=== PATIENT | male | born 1955 | race Caucasian/White ===

== ENCOUNTER 2025-01-25 16:15 | Inpatient (IN) | payer MEDICAID ==
[~2025-01-25] VITALS: Ht 160 cm; Wt 59.4 kg
[~2025-01-25 16:15] MED LIST: AMLO5TAB88 MT; CHLO25CA10 MT; FOLI-43 MT; MULT-230 MT; THIA100T72 MT
[2025-01-25 16:17] VITALS: O2SAT 97
[2025-01-25] MEDS: MORPHINE SULFATE 4 MG/ML INJ (FOR IV/IM USE) IV STA (17:54)
[2025-01-25] MEDS: KETOROLAC 30MG/ML VIAL IV STA (17:54)
[2025-01-25 18:24] LABS: BASOPHILS % 0.8 % (0.0-2.0); EOSINOPHILS % 0.6 % (0.0-5.0); HEMATOCRIT. 39.5 % (42.0-52.0); HEMOGLOBIN. 13.1 g/dL (14.0-18.0); LYMPHOCYTES % 7.1 % (20.0-50.0); MEAN CORPUSCULAR HEMOGLOBIN 32.4 pg (28.0-32.0); MEAN CORPUSCULAR HGB CONC 33.2 g/dL (31.0-37.0); MEAN CORPUSCULAR VOLUME 97.7 fL (80.0-94.0); MEAN PLATELET VOLUME 7.1 fl (7.4-10.4); MONOCYTES % 8.9 % (2.0-8.0); NEUTROPHILS % 82.6 % (40.0-76.0); PLATELET 530 x1000/uL (130-400); RED BLOOD CELL COUNT 4.05 mill/uL (4.7-6.1); RED CELL DISTRIBUTION WIDTH 14.6 % (11.6-14.6); WHITE BLOOD COUNT 10.9 x1000/uL (4.5-11.0)
[2025-01-25 18:32] LABS: CHLORIDE 97 mEq/L (98-107); SODIUM 135 mEq/L (136-145)
[2025-01-25 18:33] LABS: CALCIUM 9.1 mg/dL (8.7-10.4); CARBON DIOXIDE 27 mEq/L (21-32)
[2025-01-25 18:38] LABS: CREATININE 0.8 mg/dL (0.6-1.3); GLUCOSE 106 mg/dL (70-105); UREA NITROGEN BLOOD 13 mg/dL (9-23)
[2025-01-25 18:40] LABS: TROPONIN I HIGH SENSITIVITY 13 ng/L (3.0-53)
[2025-01-26] MEDS ORDERED: ACETAMINOPHEN 650MG/20.3ML UDC PO PRN (00:30)
[2025-01-26 06:36] VITALS: BP 128/86; PULSE 90; RESP 18; TEMP 36.8
[2025-01-26 08:00] VITALS: BP 132/59; PULSE 53; RESP 18; TEMP 36.5; O2SAT 100
[2025-01-26] MEDS ORDERED: ACETAMINOPHEN 325MG TABLET PO PRN (11:00)
[2025-01-26] MEDS ORDERED: HYDRALAZINE 20MG/ML VIAL IV PRN (11:00)
[2025-01-26] MEDS ORDERED: DOCUSATE SODIUM 100MG CAPSULE PO PRN (11:00)
[2025-01-26] MEDS ORDERED: MAGNESIUM/ALUMINUM HYDROXIDE/SIMETHICONE 30ML UDC PO PRN (11:00)
[2025-01-26] MEDS ORDERED: ONDANSETRON HCL 4MG/2ML INJ IV PRN (11:00)
[2025-01-26] MEDS ORDERED: CHLORDIAZEPOXIDE 25MG CAPSULE PO SCH (11:00)
[2025-01-26] MEDS ORDERED: GUAIFENESIN 200MG/10ML SUGAR FREE UDC PO PRN (11:00)
[2025-01-26] MEDS ORDERED: HYDRALAZINE 10 MG in SODIUM CHLORIDE 0.9% 49.5 ML IV PRN (11:30)
[2025-01-26 12:00] VITALS: BP 135/62; PULSE 58; RESP 18; TEMP 36.3; O2SAT 97
[2025-01-26] MEDS: ENOXAPARIN 40MG/0.4ML SYR SUBCUT SCH (15:00)
[2025-01-26 16:00] VITALS: BP 146/64; PULSE 60; RESP 19; TEMP 36.5; O2SAT 98
[2025-01-26 17:00] LABS: TROPONIN I HIGH SENSITIVITY 15 ng/L (3.0-53)
[2025-01-26 17:01] LABS: CREATINE KINASE 45 IU/L (46-171); PHOSPHORUS 3.6 mg/dL (2.5-4.9)
[2025-01-26 17:06] LABS: VITAMIN B12 SERUM 150 pg/mL (211-911)
[2025-01-26 20:00] VITALS: BP 135/62; PULSE 63; RESP 18; TEMP 36.4; O2SAT 99
[2025-01-26] MEDS: FAMOTIDINE 20MG/2ML VIAL IV SCH (20:41)
[2025-01-27] VITALS: BP 134/66; PULSE 66; RESP 18; TEMP 36.4; O2SAT 99
[2025-01-27 00:28] LABS: CREATINE KINASE 44 IU/L (46-171)
[2025-01-27 00:30] LABS: TROPONIN I HIGH SENSITIVITY 15 ng/L (3.0-53)
[2025-01-27 04:00] VITALS: BP 134/77; PULSE 74; RESP 18; TEMP 36.2; O2SAT 97
[2025-01-27] MEDS: HYDROCODONE/ACETAMINOPHEN 5/325MG TABLET PO PRN (05:22)
[2025-01-27 08:00] VITALS: BP 121/63; PULSE 60; RESP 18; TEMP 36.9; O2SAT 98
[2025-01-27 08:05] LABS: BASOPHILS % 1.2 % (0.0-2.0); EOSINOPHILS % 1.2 % (0.0-5.0); HEMATOCRIT. 38.7 % (42.0-52.0); HEMOGLOBIN. 12.8 g/dL (14.0-18.0); LYMPHOCYTES % 7.8 % (20.0-50.0); MEAN CORPUSCULAR HEMOGLOBIN 31.9 pg (28.0-32.0); MEAN CORPUSCULAR HGB CONC 33.2 g/dL (31.0-37.0); MEAN CORPUSCULAR VOLUME 96.2 fL (80.0-94.0); MEAN PLATELET VOLUME 6.9 fl (7.4-10.4); MONOCYTES % 9.1 % (2.0-8.0); NEUTROPHILS % 80.7 % (40.0-76.0); PLATELET 526 x1000/uL (130-400); RED BLOOD CELL COUNT 4.02 mill/uL (4.7-6.1); RED CELL DISTRIBUTION WIDTH 14.3 % (11.6-14.6); WHITE BLOOD COUNT 9.4 x1000/uL (4.5-11.0)
[2025-01-27 08:13] LABS: CHLORIDE 98 mEq/L (98-107); POTASSIUM 3.9 mEq/L (3.5-5.1); SODIUM 132 mEq/L (136-145)
[2025-01-27 08:14] LABS: CALCIUM 9.3 mg/dL (8.7-10.4); CARBON DIOXIDE 26 mEq/L (21-32)
[2025-01-27 08:19] LABS: CREATININE 0.7 mg/dL (0.6-1.3); GLUCOSE 95 mg/dL (70-105); UREA NITROGEN BLOOD 15 mg/dL (9-23)
[2025-01-27] MEDS: THIAMINE HCL 100MG TABLET PO SCH (09:56)
[2025-01-27] MEDS: FOLIC ACID 1MG TABLET PO SCH (09:56)
[2025-01-27 12:00] VITALS: BP 126/65; PULSE 62; RESP 19; TEMP 36.8; O2SAT 99
[2025-01-27 16:00] VITALS: BP 129/66; PULSE 66; RESP 18; TEMP 36.9; O2SAT 99
[2025-01-27 20:00] VITALS: BP 135/61; PULSE 67; RESP 20; TEMP 36.8; O2SAT 98
[2025-01-28] VITALS: BP 143/70; PULSE 69; RESP 19; TEMP 36.4; O2SAT 98
[2025-01-28] MEDS: ACETAMINOPHEN 325MG TABLET PO PRN (01:58)
[2025-01-28 04:00] VITALS: BP 99/65; PULSE 60; RESP 19; TEMP 36.2; O2SAT 97
[2025-01-28 07:42] VITALS: BP 125/64; PULSE 59; RESP 18; TEMP 36.7; O2SAT 98
[2025-01-28 12:00] VITALS: BP 107/53; PULSE 62; RESP 20; TEMP 36.1; O2SAT 99
[2025-01-28 16:00] VITALS: BP 130/64; PULSE 61; RESP 18; TEMP 36.6; O2SAT 99
[2025-01-28 20:00] VITALS: BP 127/66; PULSE 64; RESP 19; TEMP 36.9; O2SAT 100
[2025-01-29] VITALS: BP 115/59; PULSE 58; RESP 19; TEMP 36.3; O2SAT 100
[2025-01-29 04:00] VITALS: BP 135/66; PULSE 72; RESP 19; TEMP 36.5; O2SAT 100
[2025-01-29 08:00] VITALS: BP 131/61; PULSE 66; RESP 19; TEMP 36.2; O2SAT 96
[2025-01-29 12:00] VITALS: BP 116/60; PULSE 70; RESP 19; TEMP 36.3; O2SAT 95
[2025-01-29 16:00] VITALS: BP 145/61; PULSE 79; RESP 20; TEMP 36.6; O2SAT 99
[2025-01-29 20:00] VITALS: BP 148/78; PULSE 78; RESP 19; TEMP 36.5; O2SAT 100
[2025-01-30] VITALS: BP 151/76; PULSE 75; RESP 19; TEMP 36.3; O2SAT 98
[2025-01-30 04:00] VITALS: BP 147/73; PULSE 74; RESP 19; TEMP 36.4; O2SAT 98
[2025-01-30 08:00] VITALS: BP 163/60; PULSE 74; RESP 18; TEMP 36.7; O2SAT 98
[2025-01-30 12:00] VITALS: BP 131/65; PULSE 66; RESP 18; TEMP 36.8; O2SAT 98
[2025-01-30] MEDS ORDERED: FAMOTIDINE 20MG TABLET PO PRN (14:15)
[2025-01-30 15:48] VITALS: BP 154/69; PULSE 89; RESP 18; TEMP 36.6; O2SAT 99
[2025-01-30 20:00] VITALS: BP 155/80; PULSE 81; RESP 19; TEMP 36.7; O2SAT 100
[2025-01-31] VITALS: BP 155/76; PULSE 86; RESP 19; TEMP 36.5; O2SAT 98
[2025-01-31 04:00] VITALS: BP 124/62; PULSE 71; RESP 19; TEMP 36.5; O2SAT 98
[2025-01-31 07:48] LABS: CARBON DIOXIDE 24 mEq/L (21-32); CHLORIDE 102 mEq/L (98-107); POTASSIUM 3.8 mEq/L (3.5-5.1); SODIUM 135 mEq/L (136-145)
[2025-01-31 07:49] LABS: CALCIUM 9.7 mg/dL (8.7-10.4); EOSINOPHILS % 0.4 % (0.0-5.0); HEMATOCRIT. 40.1 % (42.0-52.0); HEMOGLOBIN. 13.7 g/dL (14.0-18.0); LYMPHOCYTES % 13.5 % (20.0-50.0); MEAN CORPUSCULAR HEMOGLOBIN 32.4 pg (28.0-32.0); MEAN CORPUSCULAR HGB CONC 34.2 g/dL (31.0-37.0); MEAN CORPUSCULAR VOLUME 94.6 fL (80.0-94.0); MONOCYTES % 10.6 % (2.0-8.0); NEUTROPHILS % 74.5 % (40.0-76.0); PLATELET 485 x1000/uL (130-400); RED BLOOD CELL COUNT 4.24 mill/uL (4.7-6.1); RED CELL DISTRIBUTION WIDTH 14.4 % (11.6-14.6); WHITE BLOOD COUNT 7.6 x1000/uL (4.5-11.0)
[2025-01-31 07:54] LABS: CREATININE 0.7 mg/dL (0.6-1.3); GLUCOSE 97 mg/dL (70-105); UREA NITROGEN BLOOD 22 mg/dL (9-23)
[2025-01-31 08:00] VITALS: BP 132/66; PULSE 68; RESP 18; TEMP 36.9; O2SAT 98
[2025-01-31] MEDS: AMLODIPINE 2.5MG TABLET PO SCH (08:45)
[2025-01-31] MEDS ORDERED: HYDR-4001 PO (09:40)
[2025-01-31 12:00] VITALS: BP 140/68; PULSE 71; RESP 19; TEMP 36.9; O2SAT 98
== END 2025-01-31 13:38 | disposition home health service (06) | DRG 347 ==
LOC: ER 16:15 → EDBEDREQ 17:29 → 8EST 22:27
PROVIDERS: ADMIT Hospitalist; ATTEND Hospitalist
DX: M48.02 Spinal stenosis, cervical region (principal); G82.50 Quadriplegia, unspecified; G99.2 Myelopathy in diseases classified elsewhere; M48.01 Spinal stenosis, occipito-atlanto-axial region; D53.9 Nutritional anemia, unspecified; I10 Essential (primary) hypertension; F10.20 Alcohol dependence, uncomplicated; Y90.9 Presence of alcohol in blood, level not specified; Z59.01 Sheltered homelessness
CPT/HCPCS: 36415; 71045; 72141; 80048; 82550; 82607; 83735; 83880; 84100; 84484; 85025; 93005; 97110; 97162; 97166; 97530; 99285; A4606; J1650; J1885; J2270; J3490

== ENCOUNTER 2025-01-31 14:46 | Emergency (ER) | payer MEDICAID ==
[~2025-01-31] VITALS: Ht 165.1 cm; Wt 65.0 kg
[~2025-01-31 14:46] MED LIST changes: +HYDR-4001 PO
[2025-01-31 14:47] VITALS: TEMP 36.6; O2SAT 97
[2025-01-31 15:21] VITALS: BP 138/82; PULSE 91; RESP 16
[2025-01-31] MEDS: HYDROCODONE/ACETAMINOPHEN 5/325MG TABLET PO ONE (15:21)
== END 2025-01-31 15:46 | disposition home or self-care (01) ==
LOC: ER 14:56
DX: M48.02 Spinal stenosis, cervical region (principal); I10 Essential (primary) hypertension; M19.90 Unspecified osteoarthritis, unspecified site; Z59.01 Sheltered homelessness
CPT/HCPCS: 99283; Z7610